=== PATIENT | female | born 1955 | race Caucasian/White ===

== ENCOUNTER 2022-10-08 10:04 | Emergency (ER) | payer MEDICARE, BC ==
[2022-10-08] MEDS ORDERED: Sodium Chloride 0.9% 10 ML Syringe FLUSH PRN (10:49)
[2022-10-08] MEDS ORDERED: diphenhydrAMINE 50 MG/ML SDV IVPUSH ONE (10:50)
[2022-10-08] MEDS ORDERED: Ketorolac 30 MG/ML SDV IVPUSH ONE (10:50)
[2022-10-08] MEDS ORDERED: Metoclopramide 10 MG/2 ML SDV IVPUSH ONE (10:51)
[2022-10-08 11:27] LABS: CORONAVIRUS COVID-19 NAA NEGATIVE (NEGATIVE)
[2022-10-08 11:46] LABS: ESTIMATED GFR 70 mL/min (>60)
== END 2022-10-08 13:31 | disposition home or self-care (01) ==
LOC: JD.ED 10:04
DX: R51.9 Headache, unspecified (principal); I10 Essential (primary) hypertension; E03.9 Hypothyroidism, unspecified; Z88.8 Allergy status to other drugs, medicaments and biological substances; Z87.891 Personal history of nicotine dependence; Z91.018 Allergy to other foods; Z88.1 Allergy status to other antibiotic agents; Z91.012 Allergy to eggs; Z79.899 Other long term (current) drug therapy; Z20.822 Contact with and (suspected) exposure to COVID-19
CPT/HCPCS: 0241U; 36415; 70450; 70450-26; 80053; 85025; 86140; 96374; 96375; 99284-25; J1200; J1885; J2765; J3490

== ENCOUNTER 2024-05-29 04:20 | Emergency (ER) | payer MEDICARE, BC ==
[2024-05-29 05:27] LABS: CORONAVIRUS COVID-19 NAA NEGATIVE (NEGATIVE); INFLUENZA A NAA NEGATIVE (NEGATIVE); RESPIRATORY SYNCYTIAL VIR NAA NEGATIVE (NEGATIVE)
[2024-05-29 05:34] LABS: BASOPHILS PERCENT AUTO 0.2 % (0.0-1.0); HEMATOCRIT 39.2 % (37.0-47.0); HEMOGLOBIN 13.3 gm/dl (12.0-16.0); IMMATURE GRAN ABSOLUTE AUTO 0.08 K/mm3 (0.00-0.05); IMMATURE GRAN PERCENT AUTO 0.6 % (0.0-0.4); LYMPHOCYTES ABSOLUTE AUTO 0.8 K/mm3 (1.0-4.8); LYMPHOCYTES PERCENT AUTO 6.1 % (24.0-44.0); MEAN CORPUSCULAR HEMOGLOBIN 30.4 pg (28.0-32.0); MEAN CORPUSCULAR HGB CONC 33.9 g/dl (32.0-36.0); MEAN CORPUSCULAR VOLUME 89.7 fl (83.0-99.0); MONOCYTES ABSOLUTE AUTO 0.7 K/mm3 (0.0-0.8); MONOCYTES PERCENT AUTO 5.1 % (0.0-8.0); NEUTROPHILS ABSOLUTE AUTO 11.8 K/mm3 (1.8-7.7); PLATELET COUNT,PLT 198 K/mm3 (150-400); RED BLOOD CELL COUNT 4.37 M/mm3 (4.10-5.30); WHITE BLOOD CELL COUNT,WBC 13.36 K/mm3 (3.9-11.3)
[2024-05-29 05:44] LABS: A/G RATIO 1.1 (1-2); ALANINE AMINOTRANSFERASE,ALT 27 U/L (14-59); ALBUMIN 3.9 g/dl (3.4-5.0); ALKALINE PHOSPHATASE 75 U/L (46-116); ANION GAP 10.7 (5-15); ASPARTATE AMNIOTRANSFERASE,AST 20 U/L (15-37); BILIRUBIN TOTAL 0.7 mg/dL (0.2-1.0); BLOOD UREA NITROGEN,BUN 11 mg/dL (7-18); C-REACTIVE PROTEIN 0.34 mg/dL (<0.30); CALCIUM 8.8 mg/dL (8.5-10.1); CARBON DIOXIDE,CO2 29 mEq/L (21-32); CHLORIDE,CL 96 mEq/L (98-107); CREATININE 1.1 mg/dL (0.55-1.02); ESTIMATED GFR 54 mL/min (>60); GLUCOSE RANDOM 131 mg/dL (70-99); POTASSIUM,K 3.7 mEq/L (3.5-5.1); PROTEIN TOTAL,TP 7.6 g/dl (6.4-8.2); SODIUM,NA 132 mEq/L (136-145)
[2024-05-29] MEDS: Sodium Chloride 0.9% 1,000 ML IV ONE ×2 (05:44→07:36)
[2024-05-29 05:52] LABS: LACTIC ACID 1.2 mmol/L (0.4-2.0)
[2024-05-29] MEDS: Acetaminophen 325 MG Tab PO ONE (06:13)
[2024-05-29] MEDS: Metoclopramide 10 MG/2 ML SDV IVPUSH ONE (06:13)
[2024-05-29 07:17] LABS: APPEARANCE,URINE CLEAR (Clear); BILIRUBIN,URINE NEGATIVE (Negative); COLOR,URINE YELLOW (Yellow); GLUCOSE,URINE NEGATIVE (Negative); KETONES,URINE 1+ (Negative); LEUKOCYTE ESTERASE,URINE NEGATIVE (Negative); NITRITE,URINE NEGATIVE (Negative); OCCULT BLOOD,URINE 2+ (Negative); PROTEIN,URINE 2+ (Negative); UROBILINOGEN,URINE 0.2 (0.2-1.0)
[2024-05-29 07:29] LABS: BACTERIA,URINE FEW /hpf (FEW); MUCUS,URINE FEW /hpf (FEW); RBC,URINE >100 /hpf (0-5); SQUAMOUS EPITHELIAL CELLS,UR 0-5 /hpf (0-5); WBC,URINE 0-5 /hpf (0-5)
[2024-05-29] MEDS: Ketorolac 15 MG/ML SDV IVPUSH ONE (07:35)
[2024-05-29] MEDS: Sodium Chloride 0.9% 10 ML Syringe FLUSH PRN (07:36)
[2024-05-29] MEDS ORDERED: Sodium Chloride 0.9% 1,000 ML IV SCH (09:30)
[2024-05-29] MEDS: Iopamidol 612 MG/ML 100 ML Bottle IVPUSH ONE (09:32)
== END 2024-05-29 10:24 | disposition home or self-care (01) ==
LOC: JD.ED 04:20
DX: E86.0 Dehydration (principal); K59.00 Constipation, unspecified; R31.21 Asymptomatic microscopic hematuria; M34.9 Systemic sclerosis, unspecified; I10 Essential (primary) hypertension; E03.9 Hypothyroidism, unspecified; Z88.8 Allergy status to other drugs, medicaments and biological substances; Z91.012 Allergy to eggs; Z91.018 Allergy to other foods; Z88.1 Allergy status to other antibiotic agents; Z79.899 Other long term (current) drug therapy; Z79.890 Hormone replacement therapy; Z90.49 Acquired absence of other specified parts of digestive tract
CPT/HCPCS: 0241U; 36415; 71045; 74177; 80053; 81001; 83605; 85025; 86140; 87040; 96361; 96374; 96375; 99284; A9270; J1885; J2765; J3490; J7030; Q9967